=== PATIENT | male | born 1950 | race Caucasian/White ===

== ENCOUNTER 2016-07-20 05:42 | Inpatient (IN) | payer OTHER ==
--- NOTE | 2016-07-19 17:27 | GHP ---
[f rep st] PREOP HISTORY AND PHYSICAL DATE OF ADMISSION: 07/20/2016 SURGERY DATE: 07/20/2016. HISTORY: The patient is a 65-year-old male who presents with severe right knee osteoarthritis. He has had appropriate conservative measures, including medications, therapeutic exercise and injection s. He has severe arthritis that is tricompartment, bone to bone in the medial compartment. He has degenerative lipping subchondral sclerosis. This impacts his gait and causes him to limp. It limit s his motion and affects activities of daily living. He has had a successful total knee replacement on the left. He has recovered well from that. He wi shes to proceed with a right knee replacement. PAST MEDICAL HISTORY: Remarkable for elevated cholesterol. PAST SURGICAL HISTORY: His surgeries include a left total knee arthroplasty, previous left knee art hroscopy, herniorrhaphy and a left carpal tunnel release apparently for infection in the hand. MEDICATIONS: Metoprolol 50 mg p.o. daily, amlodipine 5 mg p.o. daily, simvastatin 40 mg p.o. daily, hydrochlorothiazide 25 mg p.o. daily. ALLERGIES: No known drug allergies. SOCIAL HISTORY: He is a nonsmoker. REVIEW OF SYSTEMS: Is positive from a cardiopulmonary standpoint for hypertension as well as elevat ed cholesterol. PHYSICAL EXAMINATION: GENERAL: The patient is a well-developed, well-nourished male, in no apparen t distress. HEAD AND NECK: Normocephalic, atraumatic. CHEST: Clear. CARDIOVASCULAR: Regular ra te and rhythm. ABDOMEN: Soft. NEUROLOGIC: He is alert and oriented x3. EXTREMITIES: Examinatio n of the right knee shows varus malalignment. Tenderness throughout the knee, especially medial gemini nt line. He has an effusion. He has a slight flexion contracture, flexing to about 120 degrees. S KIN: Is intact. NEUROVASCULAR: Is intact. IMAGING: X-rays are described in the history. They show tricompartment osteoarthritis. IMPRESSION: Right knee tricompartment osteoarthritis. PLAN: Is right total knee arthroplasty. Benefits and risks of surgery have been reviewed with the patient and he understands that the risks include infection, damage to blood vessels or nerves, failure or loosening of the components and nee d for revision, bleeding and need for transfusion, blood clot in the leg or lungs. He is well aware of the rigorous nature of the rehabilitation and hospital stay. He has signed his consent form and wishes to proceed. /[id number]/MODL
[2016-07-20] MEDS ORDERED: LR 1,000 ML IV ONE (06:38)
[2016-07-20] MEDS ORDERED: LIDOCAINE 1% 5 ML SDV ID PRN (06:38)
[2016-07-20] MEDS ORDERED: ceFAZolin 1 GM/5 ML SYR ONE (06:40)
[2016-07-20] MEDS ORDERED: LIDOCAINE 1% 5 ML SDV ONE (06:47)
[2016-07-20] MEDS ORDERED: MIDAZOLAM 2 MG/2 ML VIAL ONE (07:06)
[2016-07-20] MEDS ORDERED: PROPOFOL/EMULSION 500 MG/50 ML BOTTLE IV ONE (07:11)
[2016-07-20] MEDS ORDERED: fentaNYL 100 MCG/2 ML INJ ONE (07:13)
[2016-07-20] MEDS ORDERED: PROPOFOL 200 MG/20 ML VIAL ONE ×2 (07:24→08:37)
[2016-07-20] MEDS ORDERED: CHLORHEXIDINE GLUC HIBICLENS 118 ML BTL TP ONE (08:00)
[2016-07-20] MEDS ORDERED: POVIDONE-IODINE 20 ML in SODIUM CL IRRIG SOLUTION 500 ML IRR ONE (08:00)
[2016-07-20] MEDS ORDERED: FAMOTIDINE 20 MG TAB PO ONE (08:00)
[2016-07-20] MEDS ORDERED: ROPI/epiNEPH/KETOROLAC JOINT COCKTAIL IU ONE (08:00)
[2016-07-20] MEDS ORDERED: ACETAMINOPHEN 325 MG TAB PO ONE (08:00)
[2016-07-20] MEDS ORDERED: DEXAMETHASONE 4 MG/ML VIAL IVP ONE (08:00)
[2016-07-20] MEDS ORDERED: CEFAZOLIN 2 GM/DEXTR 100 ML IV ONE (08:00)
[2016-07-20] MEDS ORDERED: TRANEXAMIC ACID 800 MG in NS 100 ML IV ONE (08:00)
[2016-07-20] MEDS ORDERED: epHEDrine SULFATE 10 MG/ML SYR ONE (08:01)
[2016-07-20] MEDS ORDERED: DEXAMETHASONE 4 MG/ML VIAL ONE (09:11)
[2016-07-20] MEDS ORDERED: ONDANSETRON 4 MG/2 ML VIAL ONE (09:11)
[2016-07-20] MEDS ORDERED: ROPIVACAINE HCL 150 MG/30 ML INJ ONE (09:11)
[2016-07-20] MEDS ORDERED: MAGNESIUM HYDROXIDE 30 ML UDCUP PO PRN (09:41)
[2016-07-20] MEDS ORDERED: PROMETHAZINE HCL 25 MG/ML INJ IVP PRN (09:41)
[2016-07-20] MEDS ORDERED: CYCLOBENZAPRINE 10 MG TAB PO PRN (09:41)
[2016-07-20] MEDS ORDERED: oxyCODONE IR 5 MG TAB PO PRN (09:41)
[2016-07-20] MEDS ORDERED: diphenhydrAMINE 25 MG CAP PO PRN (09:41)
[2016-07-20] MEDS ORDERED: LACTULOSE 20 GM/30 ML UDCUP PO PRN (09:41)
[2016-07-20] MEDS ORDERED: PROMETHAZINE HCL 25 MG SUPPR PR PRN (09:41)
[2016-07-20] MEDS ORDERED: POLYETHYLENE GLYCOL 3350 17 GM PKT PO PRN (09:41)
[2016-07-20] MEDS ORDERED: KETOROLAC 30 MG/1 ML SDV IVP PRN (09:41)
[2016-07-20] MEDS ORDERED: DIPHENOXYLATE/ATROPINE LOMOTIL 1 TAB PO PRN (09:41)
[2016-07-20] MEDS ORDERED: PHARMACY PAIN CONSULT 1 EA MISC PRN (09:41)
[2016-07-20] MEDS ORDERED: TEMAZEPAM 15 MG CAP PO PRN (09:41)
[2016-07-20] MEDS ORDERED: METOCLOPRAMIDE 10 MG/2 ML VIAL IVP PRN (09:41)
[2016-07-20] MEDS ORDERED: ONDANSETRON 4 MG/2 ML VIAL IVP PRN (09:41)
[2016-07-20] MEDS ORDERED: BISACODYL 10 MG SUPP PR PRN (09:41)
[2016-07-20] MEDS ORDERED: ONDANSETRON DISINTEGRATING 4 MG TAB PO PRN (09:41)
[2016-07-20] MEDS ORDERED: KETOROLAC 30 MG/1 ML SDV ONE (09:57)
[2016-07-20] MEDS ORDERED: LR 1,000 ML IV SCH (10:00)
--- NOTE | 2016-07-20 11:35 | GOP ---
[f rep st] OPERATIVE REPORT DATE OF OPERATION: 07/20/2016 SURGEON: Gage Chairez MD MANAGER UTILIZATION: TEDDY TerrellA, LSA ANESTHESIOLOGIST: Chencho Stark IV, DO PREOPERATIVE DIAGNOSIS: Right knee osteoarthritis. POSTOPERATIVE DIAGNOSIS: Right knee osteoarthritis. PROCEDURE PERFORMED: FINDINGS: DESCRIPTION OF PROCEDURE: The patient was taken the operating room and in the seated position Dr. Wm holder provided a spinal anesthetic. He was then placed under general anesthetic. He received 2 g of IV Ancef. Tourniquet was fit high on the right thigh and a blanket beneath the right hip placed to neutralize the rotation. The right leg was prepped and draped out with chlorhexidine in the usual fashion. He received tranexamic acid. The limb was elevated, exsanguinated, the tourniquet inflate d to 275 mmHg. I made a longitudinal incision in the midline, dissected through subcutaneous tissue s, used a medial parapatellar arthrotomy, and inverted the patella. I measured its thickness at 24 mm. I removed 9 mm of cartilage and bone, removed rimming osteophytes, incised the patella to 38. I drilled appropriate PEG holes. The trial and the holy cross patella reconstituted his patellar thickn ess. I then flexed the knee. Removed osteophytes from the edges of the femoral condyles. I drille d a ferryboat pilot hole and used an intramedullary sj for alignment of the femur, 5 degrees valgus cut +2, e xtra cut to accommodate his flexion contracture. I sized the femur to size 7 and I used cutting blo cks to complete the anterior-posterior and chamfer cuts and the notch cuts for this bi-cruciate stab ilized knee. The size 7 femoral component was a good fit. On the tibia exposed with posterior and lateral retractors, I used an extramedullary alignment jig, I dialed in posterior slope, rotation, a ffixed the cutting block, double-checked this with an alignment sj, removed enough bone to just ski m underneath the most worn medial plateau. I removed degenerative menisci. I sized the tibial surf jaxon at a size 6. This was pinned, the rotation dialed in precisely. I completed the tibial prep. I did do some soft tissue release medially to accommodate his varus knee. This provided better soft tissue balance medial to lateral. All the components were removed. I jet lavaged all the bone jennifer faces with antibiotics. Methylmethacrylate cement was applied to the tibia and the size 6 tibial co mponent was hammered into place. Methylmethacrylate was applied to the femur and the femoral compon ent was applied. I placed a trial liner to generate compression of the cement. The patellar compon ent was held over a cement mantle with a clamp. Once the cement had hardened, I did trial reduction s, a 10 mm insert was chosen as it supplied excellent ligamentous stability, but full range of motio n. Antibiotic irrigation was used; I used a Betadine rinse as well. I placed 1 drain. The tourniq uet was let down after 85 minutes. Arthrotomy was closed with interrupted [id number] sutures o f 0 [place], subcu tissue with 2-0 Monocryl, and the skin with milagros. The wound was dressed wit h Betadine-soaked Adaptic, 4 x 4, sterile Webril, and a long-leg STEFANO stocking. There were no compli cations. The estimated blood loss was minimal. One drain. Specimens included excised bone. All c ounts correct. The patient was taken in stable condition to recovery. My media center assistant was a medical necessity for this total knee replacement. PROCEDURES: Right total knee arthroplasty. OPERATIVE INDICATIONS: Jerry is a 65-year-old male who presents with history, exam, radiographs, and clinical course consistent with severe right knee tricompartment osteoarthritis. A total knee a rthroplasty is planned. SUMMARY OF COMPONENTS: 1. This is a [employer] Bi-Cruciate Stabilized knee. 2. All components cemented. 3. Femoral component is Oxinium. 4. Femur size 7, tibia size 6. 5. The liner Crosslinked Polyethylene is 10 mm and the patella is 38 diameter. /[id number]/MODL
[2016-07-20] MEDS: ACETAMINOPHEN 325 MG TAB PO SCH ×2 (12:02→17:40)
[2016-07-20] MEDS ORDERED: ceFAZolin 2 GM/DEXTROSE 100 ML IV SCH (14:00)
[2016-07-20] MEDS: ceFAZolin 2 GM in D5W 100 ML IV SCH ×2 (14:32→20:22)
[2016-07-20] MEDS: METOPROLOL TARTRATE 50 MG TAB PO SCH (20:21)
[2016-07-20] MEDS: SENNOSIDES/DOCUSATE SODIUM TAB PO SCH (20:21)
[2016-07-20] MEDS: FAMOTIDINE 20 MG TAB PO SCH (20:22)
[2016-07-20] MEDS: ASPIRIN 325 MG TAB PO SCH (20:28)
[2016-07-21] MEDS: ACETAMINOPHEN 325 MG TAB PO SCH ×3 (03:02→11:09)
[2016-07-21 04:34] VITALS: TEMP 98.4
[2016-07-21 04:56] LABS: HEMATOCRIT 36.2 % (40.0-51.0); HEMOGLOBIN 12.5 g/dL (13.7-17.5)
[2016-07-21 07:48] VITALS: RESP 16; O2SAT 95
--- NOTE | 2016-07-21 08:26 | SOAPPROG ---
SOAP Progress Note Assessment/Plan: Assessment: 07/21/16 POD#1 R TKA. pain controlled, Hct 36, xray fine Plan: 07/21/16 08:25 home today, oxy, asa Objective: Vital Signs Temp Pulse Resp BP Pulse Ox 36.9 C 72 16 132/85 H 95 07/21/16 04:34 07/21/16 07:47 07/21/16 07:47 07/21/16 07:47 07/21/16 07:47 Laboratory Results 07/21/16 04:20 07/20/16 07/21/16 07/22/16 05:59 05:59 05:59 Intake Total 2305 Output Total 2155 Balance 150 ICD10 Worksheet Patient Problems: Problems Problem Status Onset Arthritis of left knee Acute
[2016-07-21] MEDS ORDERED: amLODIPine BESYLATE 5 MG TAB PO SCH (09:00)
[2016-07-21] MEDS ORDERED: HYDROCHLOROTHIAZIDE 25 MG TAB PO SCH (09:00)
[2016-07-21] MEDS ORDERED: NON-FORMULARY NEW DRUG (Simvastatin [Zocor 40 Mg] 40 MG) PO SCH (09:00)
[2016-07-21] MEDS ORDERED: ATORVASTATIN CALCIUM 20 MG TAB PO SCH (09:00)
[2016-07-21] MEDS: SENNOSIDES/DOCUSATE SODIUM TAB PO SCH (09:13)
[2016-07-21] MEDS: METOPROLOL TARTRATE 50 MG TAB PO SCH (09:13)
[2016-07-21] MEDS: ASPIRIN 325 MG TAB PO SCH (09:13)
[2016-07-21] MEDS: FAMOTIDINE 20 MG TAB PO SCH (09:14)
[2016-07-21 09:15] VITALS: BP 127/76; PULSE 83
[2016-07-21] MEDS ORDERED: PNEUMOCOCCAL 0.5ML VACCINE VIAL IM ONE (10:50)
== END 2016-07-21 11:50 | disposition home or self-care (01) | DRG 470 ==
LOC: F3N 05:42
PROVIDERS: ADMIT Orthopaedic Surgery; ATTEND Orthopaedic Surgery
PROC: 0SRC0J9 Replacement of Right Knee Joint with Synthetic Substitute, Cemented, Open Approach (ICD-10-PCS; principal; 2016-07-20 07:15)
DX: M17.11 Unilateral primary osteoarthritis, right knee (principal); E78.00 Pure hypercholesterolemia, unspecified; I10 Essential (primary) hypertension; Z23 Encounter for immunization; Z96.652 Presence of left artificial knee joint
CPT/HCPCS: 97116-GP; 97161-GP; 97165-GO; C1713; G0009; J0171; J0690; J1100; J1885; J2250; J2405; J2704; J2795; J3010

== ENCOUNTER → 2017-11-03 | Outpatient (CLI) | payer OTHER | LOC: FIMAGING 14:45 | PROVIDERS: ATTEND Orthopaedic Surgery Foot and Ankle Surgery | DX: M19.072 Primary osteoarthritis, left ankle and foot (principal) ==

== ENCOUNTER 2017-11-16 10:07 | Inpatient (IN) | payer OTHER ==
--- NOTE | 2017-11-16 07:07 | GHP ---
[f rep st] PREOP HISTORY AND PHYSICAL DATE OF ADMISSION: 11/16/2017 DATE OF SURGERY: 11/16/2017. CHIEF COMPLAINT: Left ankle pain. HISTORY OF PRESENT ILLNESS: Patient is a 67-year-old with a history of progressive left ankle pain a nd swelling. His symptoms have been worsening and limiting his activity status. PAST MEDICAL HISTORY: Positive for hypertension and hyper cholesterol. MEDICINES: Amlodipine, hydrochlorothiazide, metoprolol and simvastatin. ALLERGIES: He lists no drug allergies. SOCIAL HISTORY: Negative for current tobacco use. PAST SURGICAL HISTORY: Positive for total knee arthroplasty. PHYSICAL EXAMINATION: GENERAL: He is alert and oriented x3 in no acute distress. HEENT: Head is n ormocephalic. Pupils equal, round, reactive to light. Extraocular eye movements intact. NECK: Sup ple. No JVD or lymphadenopathy. CHEST: Clear to auscultation. HEART: Regular rate and rhythm. N o murmurs or gallops. ABDOMEN: Soft, nontender, nondistended. No organomegaly. GENITALIA/RECTAL/B REASTS: Exams deferred. EXTREMITIES: Reveal marked swelling and valgus malalignment to his left an kle. His distal neurovascular exam is intact. ASSESSMENT: Left ankle arthrosis. PLAN: The patient is scheduled for a left total ankle arthroplasty. /[id number]/MODL
[2017-11-16] MEDS ORDERED: LR 1,000 ML IV ONE (10:41)
[2017-11-16] MEDS ORDERED: BUPIVACAINE 0.25% 30 ML SDV ONE (10:50)
[2017-11-16] MEDS ORDERED: ceFAZolin 2 GM/DEXTROSE 100 ML IV ONE (10:56)
[2017-11-16] MEDS ORDERED: BUPIVACAINE/EPI 0.5% 30 ML SDV ONE (11:10)
[2017-11-16] MEDS ORDERED: fentaNYL 100 MCG/2 ML INJ ONE (11:15)
[2017-11-16] MEDS ORDERED: MIDAZOLAM 2 MG/2 ML VIAL ONE (11:15)
--- NOTE | 2017-11-16 11:58 | PDANEPAE ---
ANE Past Medical History - Cardiovascular History Hx Hypertension: Yes Hx Arrhythmias: No Hx Chest Pain: No Hx Coronary Artery / Peripheral Vascular Disease: No Hx CHF / Valvular Disease: No Hx Palpitations: No Cardiovascular History Comment: pcp monitors bp meds - Pulmonary History Hx COPD: No Hx Asthma/Reactive Airway Disease: No Hx Recent Upper Respiratory Infection: No Hx Oxygen in Use at Home: No Hx Sleep Apnea: No Sleep Apnea Screening Result - Last Documented: Positive Pulmonary History Comment: PNEUMONIA X2 IN PAST. 08/2014-R pneumothorax with chest tube placement;. 3 Fx R ribs s/p fall. alisia triggers - Neurologic History Hx Cerebrovascular Accident: No Hx Seizures: No Hx Dementia: No - Endocrine History Hx Diabetes: No - Renal History Hx Renal Disorders: No Renal History Comment: frequency from hctz - Liver History Hx Hepatic Disorders: No - Neurological & Psychiatric Hx Hx Neurological and Psychiatric Disorders: No - Cancer History Hx Cancer: No - Congenital Disorder History Hx Congenital Disorders: No - GI History Hx Gastrointestinal Disorders: No - Other Health History Other Health History: Diffuse chronic arthritis. Torn bonnie rotator cuffs - Chronic Pain History Chronic Pain: Yes (right knee) - Surgical History Prior Surgeries: R TKA. left tka with [facility] 11/12/14. left carpal tunnel surgery with [place] 08/03/2012. 2011-I&D for staph inf. from carpal tunnel. 1999-umbilical and bilateral ing. hernia repair ANE Review of Systems Review of Systems: - Exercise capacity METS (RN): 4 METS ANE Patient History - Allergies Allergies/Adverse Reactions: No Known Allergies Allergy (Verified 06/13/16 14:34) - Home Medications Home Medications: Metoprolol Tartrate [Lopressor 50 mg (*)] 50 mg PO BID 07/29/12 [Last Taken ] Simvastatin [Zocor 40 mg] 40 mg PO DAILY18 07/29/12 [Last Taken 11/15/17] Ibuprofen [Motrin (*)] 200 mg PO Q4-6PRN PRN 03/02/16 [Last Taken 11/09/17] Hydrochlorothiazide [HCTZ (*)] 25 mg PO DAILY 06/13/16 [Last Taken 11/15/17] amLODIPine BESYLATE [Norvasc 5 mg (*)] 5 mg PO DAILY 06/13/16 [Last Taken ] oxyCODONE CR [Oxycontin] 20 mg PO BID PRN 11/11/17 [Last Taken 09/17/17] oxyCODONE IR [Oxycodone Ir (*)] 5 - 10 mg PO Q6HRS PRN 11/11/17 [Last Taken Unknown] - NPO status NPO Status: no food or drink >8 hours NPO Since - Liquids (Date): 11/16/17 NPO Since - Liquids (Time): 06:00 NPO Since - Solids (Date): 11/15/17 NPO Since - Solids (Time): 18:00 - Anes Hx Anes Hx: no prior problems - Smoking Hx Smoking Status: Former smoker - Family Anes Hx Family Hx Anesthesia Complications: none ANE Labs/Vital Signs - Vital Signs Blood Pressure: 139/85 Heart Rate: 58 Respiratory Rate: 16 O2 Sat (%): 96 Height: 182.88 cm Weight: 79.379 kg ANE Physical Exam - Airway Mallampati Score: Class 2 Mouth exam: normal dental/mouth exam - Pulmonary Pulmonary: no respiratory distress, no rales or rhonchi, clear to auscultation - Cardiovascular Cardiovascular: regular rate and rhythym, no murmur, rub, or gallop - ASA Status ASA Status: II ANE Anesthesia Plan Anesthesia Plan: GA w LMA (Popliteal continuous nerve block catheter in place ( Dr. Rachel).)
[2017-11-16] MEDS ORDERED: BUPIVACAINE 0.25% 270 ML in PUMP SET 1 EA NB SCH (12:00)
[2017-11-16] MEDS ORDERED: ONDANSETRON 4 MG/2 ML VIAL ONE (12:09)
[2017-11-16] MEDS ORDERED: PROPOFOL 200 MG/20 ML VIAL ONE (12:09)
[2017-11-16] MEDS ORDERED: LIDOCAINE 2% JELLY 5 ML TUBE ONE (12:09)
[2017-11-16] MEDS ORDERED: DEXAMETHASONE 4 MG/ML VIAL ONE ×2 (12:09)
[2017-11-16] MEDS ORDERED: LIDOCAINE 2% 5 ML SDV ONE (12:30)
[2017-11-16] MEDS ORDERED: fentaNYL 250 MCG/5 ML INJ ONE (12:49)
[2017-11-16] MEDS ORDERED: GLYCOPYRROLATE 0.2 MG/1 ML VIAL ONE (12:58)
[2017-11-16] MEDS ORDERED: PROMETHAZINE HCL 25 MG/ML INJ IVP PRN (14:41)
[2017-11-16] MEDS ORDERED: NALOXONE HCL 0.4 MG/ML INJ IVP PRN ×2 (14:41→15:19)
[2017-11-16] MEDS ORDERED: oxyCODONE IR 5 MG TAB PO PRN ×2 (14:41→16:55)
[2017-11-16] MEDS ORDERED: LR 500 ML IV PRN (14:41)
[2017-11-16] MEDS ORDERED: MEPERIDINE 25 MG/0.5 ML AMP IVP PRN (14:41)
[2017-11-16] MEDS ORDERED: fentaNYL 100 MCG/2 ML INJ IVP PRN (14:41)
[2017-11-16] MEDS ORDERED: ONDANSETRON 4 MG/2 ML VIAL IVP PRN (14:41)
[2017-11-16] MEDS ORDERED: ACETAMINOPHEN 500 MG TAB PO PRN (14:41)
[2017-11-16] MEDS ORDERED: BISACODYL 10 MG SUPP PR PRN (15:09)
[2017-11-16] MEDS ORDERED: POLYETHYLENE GLYCOL 3350 17 GM PKT PO PRN (15:09)
[2017-11-16] MEDS ORDERED: MAGNESIUM HYDROXIDE 30 ML UDCUP PO PRN (15:09)
[2017-11-16] MEDS ORDERED: morphINE PCA 30 MG/30 ML PCA IV PRN (15:09)
[2017-11-16] MEDS ORDERED: LACTULOSE 20 GM/30 ML UDCUP PO PRN (15:09)
--- NOTE | 2017-11-16 15:09 | POSTOPPROG ---
Post Op Note Date of Operation: 11/16/17 Surgeon: Sander Garcia Raw Mill Operator: Gadiel Anesthesia: LMA Pre-op Diagnosis: L ankle arthrosis, gastroc contracture, midfoot instability Post-op Diagnosis: same Procedure: L TAA, gastroc recession, midfoot arthrodesis Inf/Abcess present in the surg proc area at time of surgery?: No EBL: 50-100
[2017-11-16] MEDS ORDERED: D5W 1/2 NS W/ 20 KCl/L 1,000 ML IV SCH (15:15)
--- NOTE | 2017-11-16 15:29 | POSTANESTH ---
Post Anesthetic Evaluation Cardiovascular Status: Normal, Stable, Similar to Pre-Op Cond Respiratory Status: Normal, Stable, Similar to Pre-op Cond. Level of Consciousness/Mental Status: Can Participate in Eval, Alert and Oriented Pain Control: Adequate, Prn Tx Ordered Nausea/Vomiting Control: Adequate, Prn Tx Ordered Complications Possibly Related to Anesthesia: None Noted (No pain, catheter still in place. Infusion bupiv 0.25% 4 ml/hr started at 1430.)
[2017-11-16] MEDS ORDERED: ONDANSETRON DISINTEGRATING 4 MG TAB PO PRN (16:55)
[2017-11-16] MEDS ORDERED: DIAZEPAM 5 MG TAB PO PRN (16:55)
--- NOTE | 2017-11-16 17:22 | PDMN ---
Medical Necessity Medical necessity[place] [facility] [place] only, total ankle arthroplasty w/implant
[2017-11-16] MEDS ORDERED: ATORVASTATIN CALCIUM 20 MG TAB PO SCH (18:00)
[2017-11-16] MEDS: ceFAZolin 2 GM/DEXTROSE 100 ML IV SCH (20:31)
[2017-11-16] MEDS: SENNOSIDES/DOCUSATE SODIUM TAB PO SCH (20:31)
[2017-11-16] MEDS: METOPROLOL TARTRATE 50 MG TAB PO SCH (20:31)
[2017-11-17] MEDS: ceFAZolin 2 GM/DEXTROSE 100 ML IV SCH (04:42)
--- NOTE | 2017-11-17 06:50 | SOAPPROG ---
SOAP Progress Note Assessment/Plan: Assessment: S/P L TAA Some pain, mostly medially Nirali po + U/O Splint intact, no D/C Toes with good cap refill Slightly diminished sensation diffusely Plan: OOB/PT Prob D/C later today 11/17/17 06:49 Objective: Vital Signs Temp Pulse Resp BP Pulse Ox 36.9 C 82 16 125/68 H 99 11/17/17 04:00 11/17/17 04:00 11/17/17 04:00 11/17/17 04:00 11/17/17 04:00 11/16/17 11/17/17 11/18/17 05:59 05:59 05:59 Intake Total 3170 220 Output Total 2100 Balance 1070 220 ICD10 Worksheet Patient Problems: Problems Problem Status Onset Arthritis of left knee Acute
[2017-11-17] MEDS: SENNOSIDES/DOCUSATE SODIUM TAB PO SCH (07:52)
[2017-11-17] MEDS: METOPROLOL TARTRATE 50 MG TAB PO SCH (07:52)
[2017-11-17 07:57] VITALS: BP 130/75
[2017-11-17] MEDS ORDERED: ENOXAPARIN 40 MG/0.4 ML SYR SC SCH (09:00)
[2017-11-17] MEDS ORDERED: amLODIPine BESYLATE 5 MG TAB PO SCH (09:00)
[2017-11-17] MEDS ORDERED: HYDROCHLOROTHIAZIDE 25 MG TAB PO SCH (09:00)
--- NOTE | 2017-11-17 09:23 | ASDISCHSUM ---
Discharge Information Plan Status:Home with No Needs Medically Cleared to Leave:11/17/2017 Discharge Date:11/17/2017 CM D/C Disposition:Home, Routine, Self-Care ADT D/C Disposition:Home, Routine, Self-Care Projected Discharge Date:11/17/2017 Transportation at D/C: Discharge Delay Reason: Follow-Up Date:11/17/2017 Discharge Slot: Final Diagnosis: Placement Information Patient Contact Information Contact Name:PARRISH Relationship: Address:[address] City:[facility] Phone: [facility]/Zip Code:[place] [address] Email: Financial Information Financial Class:Medicare Advantage Plans Primary Plan Desc:[facility] [employer] PLANS Primary Plan Number:[id number] Secondary Plan Desc: Secondary Plan Number: Assessment Information LACE LACE Length of stay for Answers: Less than 1 day current admission Acuity / Level of Answers: Yes Care: Did the patient have an inpatient admission? Comorbidities - select Answers: Other Notes: HTN, hyper cholesterol all that apply # of Emergency department Answers: 1-2 visits in the last 6 months Score: 5 Date Signed: 11/17/2017 09:22 AM Electronically Signed By:Alena Ritter RN Intervention Information
[2017-11-17] MEDS ORDERED: PNEUMOC 13-VAL CONJ-DIP CRM/PF 0.5 ML SYR IM ONE (10:06)
--- NOTE | 2017-11-19 09:10 | GOP ---
[f rep st] OPERATIVE REPORT DATE OF OPERATION: 11/16/2017 SURGEON: Sander Garcia MD SUPPLIER DEVELOPMENT MANAGER: Jyoti Ramesh P.A.-C. who was integral to the completion of the surgery. ANESTHESIA: General plus indwelling popliteal block performed by the anesthesiologist at my request for postoperative pain management. PREOPERATIVE DIAGNOSIS: 1. Left in advanced ankle arthrosis. 2. Left gastrocnemius contracture. 3. Left hypermobile 1st ray (forefoot driven heel valgus). POSTOPERATIVE DIAGNOSIS: 1. Left in advanced ankle arthrosis. 2. Left gastrocnemius contracture. 3. Left hypermobile 1st ray (forefoot driven heel valgus). PROCEDURE PERFORMED: 1. Left implant total ankle arthroplasty. 2. Left 1st tarsometatarsal and intercuneiform arthrodesis. 3. Left gastrocnemius recession. FINDINGS: ESTIMATED BLOOD LOSS: Minimal. INDICATIONS: The patient is 67-year-old with a history of progressive left ankle pain and swelling. Clinically and radiographically he is noted to have end-stage ankle arthrosis with mild valgus tilt of his ankle within his mortise. Based on his persistence of symptoms, refractory to nonoperative tr eatment he is electing to pursue operative treatment. From an operative standpoint, treatment option s, including total ankle arthroplasty and ankle arthrodesis were discussed. The patient acknowledged he understood the potential risks of the operation, including but not limited to, bleeding, infectio n, neurovascular damage, limb loss or limb limiting function, implant failure requiring removal, revi nena arthrodesis or amputation and anesthetic risks. He additionally acknowledged that despite treat ment he did have arthritic changes in other parts of his foot including his subtalar joint which may remain symptomatic and may require additional treatment. He acknowledged he understood the potential risks, planned procedure, and postoperative plan well, and had all questions answered prior to surge ry. He gave his consent for the operative procedure. DESCRIPTION OF PROCEDURE: The patient brought to the operating after IV antibiotics were administere d. He was placed in a supine position where general anesthetic was administered. Prior to being bro ught back to the operating room, an indwelling popliteal block was performed by the anesthesiologist at my request for postoperative pain management. A tourniquet was placed on his left thigh after ind uction of general anesthetic, a bump placed under the left hip and shoulder and left lower extremity was prepped and draped in standard sterile fashion. After marking the incision and [facility] wrap [facility] tourniquet was inflated to 250. Attention was initially directed toward the gastroc recession . A longitudinal incision was made along the medial aspect of the lower leg at the level of the mid substance of gastrocnemius. Skin and subcutaneous tissue were sharply incised. Sharp dissection was carried through the superficial posterior compartment fascia in line with the skin incision. The in terval between the gastrocnemius and soleus was bluntly dissected. Utilizing a speculum for retracti on the anterior tendon and the gastrocnemius was transversely incised. Subcutaneous tissue was close d with 3-0 Vicryl suture in interrupted fashion. Skin closed with 4-0 nylon interrupted sutures. An anterior approach to the ankle was then utilized for exposure. A longitudinal incision was made a long the anterior aspect of the ankle. Skin and subcutaneous tissue were sharply incised. The exten sor retinaculum was incised in line with the skin incision. The interval between the tibialis anteri or and extensor hallucis longus was utilized for exposure taking care to avoid damage to the neurovas cular bundle. The capsule was longitudinally incised. Exuberant synovitic changes were noted. The hypertrophic synovitic tissue was excised. Examination of the joint revealed advanced arthritic morales ges with complete loss of the articular cartilage. The cutting jig for the Integra Maria Del Carmen XT total an kle was applied. The cutting jig was manipulated and position confirmed fluoroscopically until optim al positioning had transpired referencing the tibial cut off the height necessary to accomplish favor able talar cut maintaining adequate bone stock and correcting for the valgus malalignment which had o ccurred in the talus. The cutting jig was pinned into place. After pinning the medial and lateral g utters with Shantz pins, a saw was utilized to create the transverse tibial cut with a reciprocating saw utilized to create the medial and lateral cuts. The cut bone surfaces were removed with osteotom e and rongeur. Attention was then directed toward the talar cut. The taler position was corrected manually creating a neutral position within the plafond and the cutting jig was pinned into place. The talar dome cut was then accomplished with a saw and bone removed. After the cuts were made trial implants with a s ize 2 talar and tibial components were performed with a 13 mm polyethylene insert finding favorable f it and stability. With the talar trial in place the central barrel was drilled as well as the boots and shoes supervisor ior stability drill holes. Similarly with the tibial trial pinned into place the anterior keel was d rilled and punched to enable proper bone preparation. The definitive implants were impacted into elvin ce and found to have favorable stability. There was some slight laxity in the lateral capsule. Penl ac suture anchor was then placed into the lateral aspect of the distal tibia and the capsule was imbr icated creating a stable environment. Attention was then directed towards the midfoot arthrodesis. The anterior ankle incision was extende d slightly distally to allow for exposure to the medial midfoot. Skin and subcutaneous tissue were s harply incised. Dissection was carried adjacent to the extensor hallucis longus tendon. The 1st tar sometatarsal and inner cuneiform joints were exposed. Utilizing the chisel and rongeur all articular surface was denuded. In preparation for arthrodesis, subchondral bone was drilled multiple times wi th a 2.0 mm drill bit and further roughened with a chisel. After creating a trough on the dorsal asp ect of the 1st metatarsal and medial cuneiform with a 4 mm bur, 4.0 mm cortical screws were placed in lag fashion from the dorsal aspect of the 1st metatarsal, plantar aspect of the medial cuneiform, do rsal aspect of the medial cuneiform into the plantar aspect of the 1st metatarsal and medial aspect o f the 1st metatarsal into the middle cuneiform. The 1st ray was held in a plantar flexed reduced pos ition while screw placement was performed. Fluoroscopic views confirmed favorable arthrodesis and bangura rdware positions. Attention was directed toward closure. The extensor retinaculum was closed with 2-0 Vicryl suture in interrupted fashion. Subcutaneous tissue closed with 3-0 Vicryl suture in interrupted fashion and t he skin closed with 3-0 nylon interrupted vertical mattress sutures. The wounds were dressed with st erile Adaptic, 4 x 4, Webril, and the leg was placed in a below-knee splint. The tourniquet had been deflated prior to definitive closure with no untoward bleeding seen. The patient was taken to the r ecovery room, extubated, in stable condition postoperatively. All sponge, needle, and instrument cou nts were reported as being correct. DRAINS: None. COMPLICATIONS: None. PLAN: The patient will be admitted for overnight observation. He will remain nonweightbearing on hi s operative extremity. /[id number]/MODL
== END 2017-11-17 11:17 | disposition home or self-care (01) | DRG 469 ==
LOC: F3N 10:07
PROVIDERS: ADMIT Orthopaedic Surgery Foot and Ankle Surgery; ATTEND Orthopaedic Surgery Foot and Ankle Surgery
PROC: 0KST0ZZ Reposition Left Lower Leg Muscle, Open Approach (ICD-10-PCS; principal; 2017-11-16 11:45)
PROC: 0SRG0JZ Replacement of Left Ankle Joint with Synthetic Substitute, Open Approach (ICD-10-PCS; principal; 2017-11-16 11:45)
PROC: 0SGL04Z Fusion of Left Tarsometatarsal Joint with Internal Fixation Device, Open Approach (ICD-10-PCS; principal; 2017-11-16 11:45)
DX: M19.072 Primary osteoarthritis, left ankle and foot (principal); M62.462 Contracture of muscle, left lower leg; I10 Essential (primary) hypertension; E78.00 Pure hypercholesterolemia, unspecified; Z96.652 Presence of left artificial knee joint
CPT/HCPCS: 97116-GP; 97161-GP; C1713; G8978-GP-CI; G8979-GP-CI; G8980-GP-CI; J0690; J1100; J1650; J2250; J2405; J2704; J3010

== ENCOUNTER 2018-08-02 02:24 | Inpatient (IN) | payer OTHER ==
[2018-08-02 02:38] LABS: PLATELET COUNT 562 10^3/uL (150-400)
[2018-08-02 02:48] LABS: INR 0.93 (0.83-1.16); PROTIME(PATIENT) 12.1 SEC (12.0-15.0)
--- NOTE | 2018-08-02 03:05 | EDPHY ---
H & P Time Seen by Provider: 08/02/18 02:31 HPI/ROS: Chief Complaint: Fall, scalp laceration, wrist injury HPI: 67-year-old male had a mechanical fall down 14 steps onto a concrete surface. Patient had a positive loss of consciousness. His heard him fall and found him unresponsive. Patient does not have any recollection of the last 24 hr. Does not remember any of the events. Per EMS the patient has a large laceration to his left scalp. Patient is also complaining of left wrist pain. Patient arrived as a limited + trauma team activation. ROS: 10 systems were reviewed and were negative except those elements noted in the HPI. Social History: No smoking Family History: non-contributory Physical Exam: Gen: Awake, Alert, Airway Intact HEENT: Head: Patient has a very large degloving skin avulsion of his left scalp without tissue loss, approximately 30 cm, no active bleeding Eyes: PERRLA, EOMI Nose: No epistaxis Mouth: Normal dentition, Airway patent Face: No deformity Neck: non-tender, cervical collar in place Chest: non-tender, lungs CTA Heart: normal heart tones Abd: soft, non-tender, atraumatic Pelvis: non-tender, stable to AP and Lateral compression Back: atraumatic, no midline tenderness Ext: Tenderness over the left hand and distal forearm, sensations intact in the radial, median, and ulnar nerve distribution. Skin: no rash Neuro: CN II-XII intact, Strength 5/5 in all extremities, sensation intact in all extremities - Personal History Tetanus Vaccine Date: 2011 - Medical/Surgical History Hx Asthma: No Hx Chronic Respiratory Disease: No Hx Diabetes: No Hx Cardiac Disease: Yes Hx Renal Disease: No Hx Cirrhosis: No Hx Alcoholism: No Hx HIV/AIDS: No Hx Splenectomy or Spleen Trauma: No Other PMH: chronic knee pain, HTN, hyperlipidemia, OA, HERNIA REPAIR INQUINAL & UMBILICAL. psh: LEFT KNEE 2014; RIGHT KNEE 2015 - Social History Smoking Status: Former smoker Constitutional: Initial Vital Signs Temperature (C) 36.6 C 08/02/18 04:22 Heart Rate 65 08/02/18 04:22 Respiratory Rate 14 08/02/18 04:22 Blood Pressure 112/60 08/02/18 04:22 O2 Sat (%) 100 08/02/18 04:22 Allergies/Adverse Reactions: No Known Allergies Allergy (Verified 08/02/18 04:31) Home Medications: Medication Instructions Recorded Metoprolol Tartrate [Lopressor 50 50 mg PO BID 07/29/12 mg (*)] Ibuprofen [Motrin (*)] 200 mg PO Q4-6PRN PRN 03/02/16 Hydrochlorothiazide [HCTZ (*)] 25 mg PO DAILY 06/13/16 amLODIPine BESYLATE [Norvasc 5 mg 5 mg PO DAILY 06/13/16 (*)] Multivitamins [Multivitamin (*)] 1 each PO DAILY 08/02/18 Rosuvastatin Calcium [Crestor 10mg 10 mg PO DAILY18 08/02/18 (RX)] Medical Decision Making - Diagnostics Imaging Results: CT scan of the head and cervical spine show the followin. Acute chip fracture of the anterior-inferior vertebral body of C6 on the right 2. Acute nondisplaced fracture through the right pedicle and lamina of C7. 3. Acute nondisplaced fractures of the inferior articulating facet of C7 and superior articulating facet of T1 on the right 4. Acute fractures of the base of the spinous process and right lamina of C6. 5. Remote fracture of the spinous process of C6 and 7. Widening of the interspinous space at this level may be acute or remote. 6. Large scalp laceration on the left at the apex 7. Fluid within the maxillary and sphenoid sinus, no facial bone fracture 8. Mild prefer deep will soft tissue swelling at the level of C7. 9. No acute intraparenchymal hemorrhage, no mass lesion seen, no CT evidence for acute tentorial infarct. No midline shift or extra-axial collections. CT scan interpreted by Dr. Jimenez, direct Radiology. Imaging: Discussed imaging studies w/ machine scallop cutter Radiologist ED Course/Re-evaluation: 67-year-old male status post fall down a flight of stairs a large scalp hematoma. Arrived as a trauma team activation plan. Will obtain CT scan of the head neck, image the left forearm and reassess. CT results noted. Discussed with Dr. Pang, trauma surgery. He is prepared to scalp laceration. I have discussed with Neurosurgery. They are requesting MRI. They will consult in the morning. Patient is neurologically intact. Left hand consistent with a fracture. Patient has been splinted. In surgery notified by Dr. Pang. Critical Care Time: I spent a total of 40 minutes of critical care time in obtaining history, performing a physical exam, bedside monitoring of interventions, collecting and interpreting tests and discussion with consultants but not including time spent performing procedures. - Data Points Laboratory Results: Laboratory Results 08/02/18 02:15 08/02/18 02:15 Medications Given: Acetaminophen (Tylenol) 325 - 650 mg PO Q4HRS PRN PRN Reason: Pain, Mild Able to Take PO Stop: 01/29/19 04:13 Last Admin: 08/02/18 10:50 Dose: 650 mg Potassium Chloride/Sodium Chloride (Ns W/ 20 Kcl/L) 1,000 mls @ 100 mls/hr IV CONT SUSHMA Stop: 01/29/19 10:29 Last Admin: 08/02/18 23:05 Dose: 1,000 mls Morphine Sulfate (Morphine) 1 - 2 mg IVP Q1HR PRN PRN Reason: Pain, Severe Unable to Take PO Stop: 08/12/18 04:13 Last Admin: 08/02/18 06:14 Dose: 2 mg Ondansetron HCl (Zofran) 4 mg IVP Q4HRS PRN PRN Reason: Nausea/Vomiting, Can't Take PO Stop: 01/29/19 06:10 Last Admin: 08/02/18 06:13 Dose: 4 mg Oxycodone HCl (Oxycodone Ir) 5 - 10 mg PO Q4HRS PRN PRN Reason: Pain, Severe Able to Take PO Stop: 08/12/18 04:24 Last Admin: 08/03/18 00:41 Dose: 5 mg Rosuvastatin Calcium (Crestor) 10 mg PO DAILY18 SUSHMA Stop: 01/29/19 17:59 Last Admin: 08/02/18 18:41 Dose: 10 mg Discontinued Medications Famotidine/Sodium Chloride (Pepcid 20 Mg (Premix)) 50 mls @ 200 mls/hr IV Q12HRS SUSHMA Stop: 01/29/19 08:59 Last Admin: 08/02/18 09:16 Dose: 50 mls Point of Care Test Results: Chemistry 08/02/18 02:34 POC Sodium 129 mEq/L L mEq/L (135-145) POC Potassium 3.1 mEq/L L mEq/L (3.3-5.0) POC Chloride 91 mEq/L L mEq/L (97-110) POC Total CO2 25 mEq/L mEq/L (22-31) POC BUN 6 mg/dL L mg/dL (7-23) POC Creatinine 0.9 mg/dL mg/dL (0.7-1.3) POC Glucose 99 mg/dL mg/dL (70-100) ISTAT H&H 08/02/18 02:34 POC Hgb 12.9 gm/dL L gm/dL (13.7-17.5) POC Hct 38 % L % (40-51) Departure - Departure Disposition: [facility] Inpatient Acute Clinical Impression: Cervical spine fracture, Scalp laceration, Hand fracture Condition: Fair
[2018-08-02] MEDS ORDERED: NALOXONE HCL 0.4 MG/ML INJ IVP PRN (04:14)
[2018-08-02] MEDS ORDERED: LORazepam 2 MG/ML INJ IVP PRN (04:14)
--- NOTE | 2018-08-02 04:36 | PDCONSULT ---
Adult Live In Caregiver Note: Limited trauma activation Chief complaint: Fall down stairs at home. History of present illness: This is a 67-year-old gentleman presents to the hospital after an unwitnessed fall down stairs at his home. The house under construction and the patient fell landing with a 1 leg still on the staircase and a large pool of blood from a scalp wound at the bottom of the stairs. The patient is not on anticoagulation. His minimal complaints except for his left wrist left shoulder to palpation and scalp wound. Past medical history: Hypertension, hyperlipidemia, chronic pain Family history: Noncontributory No known drug allergies Medications at home: Amlodipine, metoprolol, hydrochlorothiazide, OxyContin, oxycodone, Statin Review of systems: Significant for recent trauma otherwise negative denies chest pain, history of syncope, hypoglycemia Social history: Admits to alcohol use, has significant other with him Alert oriented to person place and time Sclerae anicteric extraocular motions intact pupils 4 mm and reactive, no tympanic blood Large scalp laceration from left forehead to occiput with matted blood Dentition intact Abrasion by nares Regular rate and rhythm Clear to auscultation bilaterally Trachea midline no JVD Left shoulder abrasion Left wrist deformity tender to palpation Abdomen soft nontender nondistended Left lower extremity, right lower extremity, right upper extremity without deformity abrasion or signs of trauma. Distally neurovascularly intact 08/02/18 02:15 08/02/18 02:15 Blood alcohol level 139 CT scanned from direct Radiology with findings of acute fractures through the base of the spinous process of right lamina of C6 inferior articulating surface of C6 facet and remote to minus depressed fracture of C6, acute nondisplaced fracture through the pedicle and lamina of C7 as well as the articulating surface superiorly facet C7 on the right Plain film of the wrist personally reviewed on PACS with Dr. Angeles emergency medicine shows volar/posterior chip fracture displaced. Normal left forearm and shoulder films Impression/plan C6 and C7 acute fractures of the lamina and pedicles the wound as well as articulating surfaces between the 2 vertebral bodies. MRI pending. Neurosurgery Dr. Francis consult id Chip fracture left wrist. Splint applied. Dr. Reis orthopedic surgery to be called. Admit to Step-Down Unit NPO except for meds. Restart home meds when they have been reconciled by pharmacy Hold anticoagulation until is assessed by consulting services of Neurosurgery and Orthopedics. Neurologic checks q.2 hours.
[2018-08-02] MEDS ORDERED: ONDANSETRON 4 MG/2 ML VIAL IVP PRN (06:11)
[2018-08-02] MEDS ORDERED: ONDANSETRON 4 MG/2 ML VIAL ONE (06:12)
[2018-08-02] MEDS ORDERED: GADOBUTROL 10 ML VIAL IVP ONE (07:01)
[2018-08-02] MEDS ORDERED: FAMOTIDINE 20 MG/NACL 50 ML IV SCH (09:00)
[2018-08-02] MEDS ORDERED: PROTOCOL POTASSIUM 1 DOSE MISC PRN (10:15)
[2018-08-02] MEDS ORDERED: PROTOCOL MAGNESIUM 1 DOSE IV PRN (10:15)
[2018-08-02] MEDS: NS W/ 20 KCl/L 1,000 ML IV SCH ×2 (10:35→23:05)
--- NOTE | 2018-08-02 10:46 | GCON ---
[f rep st] CONSULTATION DATE OF CONSULTATION: 08/02/2018 CHIEF COMPLAINT: Fall down stairs at home. The patient is seen by neurosurgical service at 0836 on 08/02/2017. Attempt was made this morning at 0700, but patient was in MRI scanner, unable to examine. HISTORY OF PRESENT ILLNESS: The patient is a 67-year-old gentleman who presented to the hospital aft er an unwitnessed fall down some stairs at home. The house is under construction. The patient fell, landing with 1 leg still on the staircase and a large pool of blood from a scalp wound at the bottom of the stairs. This account was given from the admitting trauma surgeon, as well as reports from [facility] and EMS. The patient is not on any current anticoagulation. Patient denies any aspirin. Curr ently, he is awake and alert. He is able to tell me his name, location, date, and time. He has a GC S currently of 15. He has some complaints to the left wrist, left shoulder, but there was loss of co nsciousness and a CT scan of the head was obtained, as well as CT scan of the cervical spine which sh owed multiple cervical spine fractures. There is a laceration to his scalp which was repaired prior to our evaluation. The patient denies any right upper extremity or bilateral lower extremity numbnes s, tingling, weakness, or pain. He does have a splint in place on the right wrist. No chest pain. No shortness of breath. No abdominal complaints. He has no thoracic or lumbar spine complaints. He currently is flat on his back in a cervical collar. PAST MEDICAL HISTORY: Significant for hypertension, hyperlipidemia, and chronic pain. SURGICAL HISTORY: 1. Hernia repair, inguinal and umbilical. 2. Left knee surgery 2014. 3. Right knee surgery 2016. CURRENT MEDICATIONS: 1. Lopressor. 2. Simvastatin. 3. Motrin. 4. Hydrochlorothiazide. 5. Norvasc. 6. OxyContin. 7. Oxycodone given in 10/2017. SOCIAL HISTORY: The patient is . He is a former smoker. He admits to alcohol intake. ALLERGIES: No known drug allergies. FAMILY HISTORY: Reviewed and noncontributory. IMMUNIZATIONS: Reported up to date. TRAVEL: No recent travel. REVIEW OF SYSTEMS: A complete 10-point review of systems was negative, otherwise noted in HPI and be low. PHYSICAL EXAMINATION: GENERAL: This is awake, alert, oriented male in no acute distress. VITAL SIG NS: Most recent, blood pressure 107/58 with a MAP of 74, 69 heart rate, 16 respirations, 100% on 1 L , temperature 37.2. HEENT: Head is normocephalic. Large laceration noted to the left forehead occi put that was repaired. Pupils are equal, round, and reactive to light. EOMI intact. Ears are paten t. Nose is patent. NECK: Palpated in collar with no midline tenderness. Range of motion was not t ested with flexion, extension, lateral bending, or rotation due to nature of injury. RESPIRATORY: D eferred. CARDIAC: Deferred. ABDOMEN: Soft, nontender. No peritoneal signs. /RECTAL: Deferred . NEURO: Patient is awake, alert, oriented to name, place, location, date, time, and situation. Me johnny is intact to past events, not to recent fall. Speech: No aphasia, dysarthria, dysphonia. Cran ial nerves 2 through 12 grossly intact. Motor: Patient has 5/5 strength in all muscle groups of the bilateral upper and lower extremities to include deltoids, biceps, triceps, brachioradialis, wrist f lexion and extensors, senior strategy analyst intrinsic fingers, iliopsoas, quadriceps, hamstring, plantar flexion, dors iflexion, EHL testing with the exception of left wrist extension was not tested, as well as flexion o f the wrist due to splint in place. Distally, he is able to wiggle his fingers. His senior strategy analyst is intact on the left side. Biceps and triceps intact. Sensation intact to light touch throughout all dermato me distributions, upper and lower extremities. Negative straight leg raise. Negative TASNEEM test. R eflexes: Biceps, triceps, brachioradialis, knee jerk, and ankle jerk are 2+/4. Toes are downgoing bi laterally. Morrison's negative. Babinski negative. No clonus. DIAGNOSTICS: Laboratory tests obtained 08/02/2018 show a white count of 9.29 with an H and H 11.4 an d 35.1 with a platelet count of 562. Coags on 08/02/2018 show a PT of 12.1, INR 0.93, and a PTT of 2 6.6. Chemistry on 08/02/2018 shows sodium 129, potassium 3.1, chloride 91, CO2 of 25, BUN 6, creatin ine 0.9, and glucose of 99. Alcohol level on 08/02/2018 at 2:[address] scan of the cervical spine shows fractures through the base of spinous processes of the right lami na of C6, inferior articulating surface of C6 facet, acute nondisplaced fracture through the pedicle and lamina of C7, as well as articulating surface of the facet of C7 on the right. MRI pending of the cervical spine. Plain films of the wrist show a volar posterior chip fracture, displaced. Otherwise, normal left for earm and shoulder films. IMPRESSION: 1. C6 and C7 acute fractures of the lamina and pedicles, as well as articulating surfaces between th e 2 vertebrae. 2. Fall. 3. Alcohol abuse. 4. History of hypertension and other medical conditions. PLAN AND DISCUSSION: The patient is a 67-year-old male who came into the emergency department with a lcohol on board. He had a fall last night that was unwitnessed, was found down at the bottom of the steps by his . Emergency Medical Services were called and notified. He was brought in the emerg ency department and a CT scan of the head was obtained, as well as CT scan of the cervical spine. e cervical spine CT scan showed C6 and C7 acute fractures of the lamina and pedicles, as well as the facets. He was placed in a cervical collar. He had an MRI this morning and the final report is pend ing at this time. We will review this with neurosurgeon and develop a treatment plan accordingly. Alondra carmona recommended [id number] status at this time. He may need surgery for this and will stay in th e collar at this time in intensive care unit with [id number] status. Was instructed on no anti coagulations at this time, to hold this. All questions and concerns were answered. /[id number]/MODL
[2018-08-02] MEDS: ACETAMINOPHEN 325 MG TAB PO PRN (10:50)
--- NOTE | 2018-08-02 12:40 | PDCONSULT ---
Roughener Note: Brief Consult Note: L scaphoid waist fracture with possible radial styloid and dorsal ligament avulsion injury. I will return to extend current splint to a thumb spica. He should remain NWB of the LUE until f/u with me in 10-14d.
--- NOTE | 2018-08-02 12:57 | PDMN ---
Medical Necessity Medical necessity: Pt meets inpt criteria per MD order and Musculoskeletal disease GRG. 67 y/o s/p fall down stairs admitted w/mult injuries: cervical spine CT shows C6 and C7 acute fractures of the lamina, pedicles, and facets, placed in cervical collar, MRI results pending, evaluated by neurosurg, kept NPO as pt may need surgery, ICU monitoring, q 2 hr neuro checks. Other injuries include scalp lac and chip fx L wrist, ortho consult.
--- NOTE | 2018-08-02 14:16 | ASMTCMCOM ---
CM Note CM Note Notes: Pt is a 67 yo M, trauma pt, presented to [facility] after fall down 14 stairs. Pt admits to ETOH use. Pt lives in [place] with his . Pt care discussed in rounds, pt will likely have surgery today. Discharge needs TBD, pending PT/OT evals. CM to follow. Plan: TBD Date Signed: 08/02/2018 02:15 PM Electronically Signed By:ANNABEL Santos
[2018-08-02] MEDS: oxyCODONE IR 5 MG TAB PO PRN ×3 (14:49→20:17)
--- NOTE | 2018-08-02 14:55 | TRAUMAPNT ---
Trauma Tertiary Progress Note New Findings: None Assessment/Plan: 67 year old s/p fall Scalp laceration - milagros/sutures out in 10 days C6/7 fx with some c5/6 disc protrusion. No focal deficits. NSG planning on treating with an [place] collar, may need surgery later L navicular fracture - in splint. Dr. Reis evaluated. NWB LUE, keep elevated, f /u as outpatient Hypertension - normotensive now. Holding home meds. Hospitalists consult Hyperlipidemia - crestor Regular diet ETOH 138 at admission PT/OT/ST I attended multidisciplinary rounds S: Some pain by neck and head. Otherwise no new complaints. Pain controlled Objective: Vital Signs Temp Pulse Resp BP Pulse Ox 37.0 C 90 17 111/67 100 08/02/18 14:00 08/02/18 14:00 08/02/18 14:00 08/02/18 14:00 08/02/18 14:00 08/01/18 08/02/18 08/03/18 05:59 05:59 05:59 Intake Total 0 Output Total 550 400 Balance -550 -400 PT 12.1 SEC (12.0-15.0) 08/02/18 02:15 INR 0.93 (0.83-1.16) 08/02/18 02:15 Physical Exam - Physical Exam General Appearance: WD/WN, alert, no apparent distress, other (lying in bed) EENT: PERRL/EOMI, normal ENT inspection, No scleral icterus (R), No scleral icterus (L), No hearing deficit Neck: other (collar in place) Respiratory: lungs clear, normal breath sounds Cardiac/Chest: normal peripheral pulses, regular rate, rhythm Abdomen: normal bowel sounds, non-tender, soft Skin: normal color, warm/dry, other (abrasion L shoulder) Extremities: normal range of motion, non-tender, other (excellent strength. LUE with warm fingers and can move all fingers) Neuro/Psych: no motor/sensory deficits
--- NOTE | 2018-08-02 15:29 | GCON ---
[f rep st] CONSULTATION REFERRING PHYSICIAN: Ced Pang MD REASON FOR CONSULTATION: This is a consultation for left wrist injury. CHIEF COMPLAINT: Left wrist injury. HISTORY OF PRESENT ILLNESS: The patient is a 67-year-old male who presented to the hospital this mor carmen with a fall down the stairs at home. He is remodeling his house. He states he does not quite r emember what happened. When he came to, there was blood. He was bleeding from the scalp. He was ta [facility] to the [facility] ER seen and evaluated by the ER and trauma staff. His head and C T cervical spine were imaged. He was having pain in the left wrist, and x-rays of the wrist were obt ained. Some fractures were seen in the wrist, and I was consulted for further management. PAST MEDICAL HISTORY: Hypertension, hyperlipidemia, chronic pain. PAST SURGICAL HISTORY: 1. Hernia repair. 2. 2014 left knee surgery. 3. 2016 right knee surgery. MEDICATIONS: Please see MAR. SOCIAL HISTORY: He is . He is a former smoker. Occasional alcohol. ALLERGIES: No known drug allergies. FAMILY HISTORY: Noncontributory. IMAGING: X-ray of the left wrist and forearm were reviewed personally by me. The x-rays show a mini charlie displaced fracture of the scaphoid waist. There also appears to be a nondisplaced avulsion fra cture of the radial styloid tip as well as a possible volar ligament avulsion type fracture, likely t riquetral avulsion. PHYSICAL EXAMINATION: GENERAL: He is alert and oriented x3. He is no apparent distress in the ICU. EXTREMITIES: The left upper extremity is in a splint. He has intact AIN and ulnar motor. His sen sation is intact to light touch in motor in the median, ulnar, and radial distributions. His fingers are well perfused. He is not complaining of any pain with finger motion. He is able to make a full fist. ASSESSMENT AND PLAN: Left scaphoid waist fracture and possible radial styloid fracture along with a possible dorsal ligament avulsion. The above fracture pattern may be indicative of a more involved s oft tissue injury to the wrist, specifically a greater arc type injury. I had a brief discussion abo ut the options for the scaphoid fracture, namely casting versus surgical approach with a compression screw. We will discuss this further when he sees me in my clinic. For the time being, I will extend his splint to a thumb spica type splint. He is to follow up with me in in about 10-14 da ys. We will repeat x-rays in clinic and then we will have another discussion about treatment options for the left wrist. Thank you for this consult. /[id number]/MODL
--- NOTE | 2018-08-02 15:53 | GCON ---
[f rep st] CONSULTATION DATE OF CONSULTATION: 08/02/2018 Mr. Joseph is a 67-year-old gentleman who I am asked to see by the Trauma Service. He underwent a fa ll in the early hours of the morning. He has no recollection of it. He does have a history of sleepwalking in the setting of melatonin use . His house is currently under construction. He fell down some plywood steps and landed on a cement landing with a laceration requiring a fair amount of milagros and sutures. Cervical spine MRI subseq uently revealed posttraumatic sequelae fracture in C6 and C7. When I speak to the patient, he denies history of palpitations, chest pain, unexplained loss of consc iousness. He acknowledges drinking alcohol, but does not sound like he drinks to the point of intoxi cation every evening. That said, at 2 in the morning his blood alcohol level is 139. He has a history of hyponatremia from previous hospital visits. In 2016, he had sodiums in the 125-1 32 range. He does take hydrochlorothiazide. REVIEW OF SYSTEMS: Complete 10-point review of systems conducted, negative except as noted in the HP I. PAST MEDICAL HISTORY: Inguinal and umbilical hernia repair, knee surgery bilaterally, hypertension, hyperlipidemia. ALLERGIES: No known drug allergies. HOME MEDICATIONS: Amlodipine, hydrochlorothiazide, ibuprofen, metoprolol, multivitamin, and rosuvast atin. 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 Drinks beer daily, light beer with ice cubes. He is a nonsmoker. FAMILY HISTORY: Reviewed and unremarkable. PHYSICAL EXAMINATION: VITAL SIGNS: Temperature 37, blood pressure 111/67, pulse 90, breathing 17 ti mes a minute, 100% on 1 L. GENERAL: No acute distress. He has a well-sutured laceration on his for ehead. HEENT: Sclerae are anicteric. Oropharynx is clear. NECK: In a hard collar. HEART: S1, S 2, without murmurs. ABDOMEN: Soft, nontender, nondistended. LOWER EXTREMITIES: No edema. Calves are nontender. SKIN: Without rash. NEUROLOGIC: Nonfocal. LABORATORY DATA: Sodium 139, potassium 3.8, chloride 93, bicarb 24, BUN 8, creatinine 0.8, glucose 9 5. INR is normal. White count 9, hematocrit 35, platelets 562,000. Ethanol level is 139 as mention ed. IMAGING STUDIES: As in the HPI. He does have an acute nondisplaced navicular fracture and a wrist x -ray. ASSESSMENT/PLAN: A 67-year-old gentleman with presumed mechanical fall, a cervical spine fracture, n avicular fracture, head laceration. 1. Fall. This is presumed mechanical. I think it is reasonable to keep on telemetry while he is he re in the hospital. It sounds like he is wandering around, possibly intoxicated, at his house in the dark while it is under construction. This is certainly a set up for falls. It may have been sleepw alking. 2. Hyponatremia. This is likely low solute intake in the setting of hydrochlorothiazide. I would p ermanently discontinue the hydrochlorothiazide given the chronicity of it. I think this is probably somewhere near his baseline. 3. Cervical spine fracture. It sounds like per Neurosurgery he is going to be managed with a hard c ollar and followup. 4. Prophylaxis. Sequential compression devices for now. DISPOSITION: Currently ICU. Thank you for this consultation. Hospital Medicine will follow. /[id number]/MODL
--- NOTE | 2018-08-02 17:54 | POSTOPPROG ---
Post Op Note Date of Operation: 08/02/18 Surgeon: Ced Pang Screw Machine Set Up Operator Tool: none Anesthesia: Local (Specify) (1% lido w/ epi) Pre-op Diagnosis: 25 cm scalp laceration Post-op Diagnosis: same Procedure: closure multilayer Findings: good tissue approximation with hemostasis Inf/Abcess present in the surg proc area at time of surgery?: No EBL: Minimal Specimen(s): none
--- NOTE | 2018-08-02 18:15 | GOP ---
[f rep st] OPERATIVE REPORT DATE OF OPERATION: SURGEON: Ced Pang MD TILLER WORKER: No assistant account manager. ANESTHESIA: Local anesthesia of 1% lidocaine with epinephrine. PREOPERATIVE DIAGNOSIS: Degloving scalp laceration over 20 cm and a smaller one of 3 cm. POSTOPERATIVE DIAGNOSIS: PROCEDURE PERFORMED: Irrigation and closure. FINDINGS: INDICATIONS: 67-year-old gentleman who presented with limited activated trauma, 20 cm scalp lacerati on with a large amount of blood loss at the scene. This is requested to be close from the emergency room. DESCRIPTION OF PROCEDURE: The patient is supine on the bed with a collar in place, and the wound was irrigated copiously with saline. After ensuring all debris was out, major clots were removed from t he hair and from the galea. The area was then reapproximated by using 2-0 Vicryl to reapproximate de ep dermis, and then using milagros for the superficial layer ensuring to keep the hair out of the clip s. This is done to the anterior hairline from just behind the ear and the 3 cm laceration was also c losed in a single layers using milagros. The area on his forehead was reapproximated using 4-0 nylon suture, interrupted, without difficulty. Bacitracin was applied, and the patient tolerated the proce dure well. COMPLICATIONS: There were no complications. /[id number]/MODL
[2018-08-02] MEDS: ROSUVASTATIN CALCIUM 10 MG TAB PO SCH (18:41)
[2018-08-03] MEDS: oxyCODONE IR 5 MG TAB PO PRN ×3 (00:41→19:47)
--- NOTE | 2018-08-03 02:21 | GCON ---
[f rep st] CONSULTATION PULMONARY/CRITICAL CARE CONSULTATION DATE OF CONSULTATION: 08/02/2018 REASON FOR CONSULTATION: Status post fall with neck fracture. HISTORY: The patient is a pleasant 67-year-old gentleman who fell down a flight of stairs at his lesie e yesterday. He does not remember how he fell. He remembers his trying to get him up. He stru ck his head and had a scalp wound. He also had a left wrist injury. CT scan of the neck on admissio n showed C6 and C7 fractures of the lamina and pedicles and subsequently a chip fracture of the left wrist. Blood alcohol was 139 on admission. The patient was given appropriate pain control, placed i n a hard collar, and admitted to the intensive care unit on step-down status. He has been seen by [facility] and surgery is being considered, either later today or possibly tomorrow. PAST MEDICAL HISTORY: Remarkable for systemic hypertension, hyperlipidemia, and chronic pain. There is a history of hyponatremia. MEDICATIONS: Home medications on admission included amlodipine, Crestor, metoprolol, Motrin, and hyd rochlorothiazide. PAST SURGICAL HISTORY: Hernia repairs, knee surgeries. SOCIAL HISTORY: The patient is . 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 He smoked cigarettes i n the distant past. He drinks alcohol generally daily, primarily beer. FAMILY HISTORY: Noncontributory. REVIEW OF SYSTEMS: A 10-point review of systems is negative except as noted above. ALLERGIES: No known drug allergies. PHYSICAL EXAMINATION: GENERAL: Reveals a gentleman who appears somewhat uncomfortable. He is sitti ng up in bed. There is a laceration, which has been sutured related to the left forehead and scalp. He has various bruises elsewhere. His left arm is in a splint. Nasal cannula oxygen is in place at 1 L. saturations are 100%. Blood pressure is 110/60, heart rate 85 with sinus rhythm on the monito r. Respiratory rate is 14. He is afebrile. HEENT: Remarkable for issues as outlined above regardi ng his trauma. A hard collar is in place. Nasal cannula oxygen is in place. CHEST: Clear bilatera lly. HEART: Regular in rate and rhythm without significant murmur or gallop. ABDOMEN: Soft, nonte nder. Bowel sounds are present. EXTREMITIES: The lower extremities are unremarkable for significan t edema, cords, or tenderness. He moves all extremities with good strength when asked except for the left upper extremity. Strength is limited secondary to pain from his wrist fracture. LABORATORY DATA: White blood cell count is 9200, hematocrit 38, and platelets are 562,000. PT and P TT on admission were normal. Sodium was 129, potassium 3.1, BUN 8 with a creatinine is 0.8. Glucose is 95. Blood alcohol on admission was 139. ASSESSMENT: 1. Status post fall. 2. Cervical spine fracture at C6-7: Surgery will be needed. Neurosurgery has seen the patient. He is being kept nothing by mouth for now. 3. Left wrist fracture: He has been seen by Orthopedics. An extended splint is going to be placed. 4. Abrasions, laceration: Status post suturing. 5. History of medical problems, including hypertension, hyperlipidemia, et cetera: Stable. His usu al medications can be continued. 6. Hyponatremia: This is a chronic problem, likely related to hydrochlorothiazide. This will not b e continued during the hospitalization and probably should be stopped going forward. 7. Anticoagulation: Sequential compression devices currently. Enoxaparin is contraindicated. 8. Gastrointestinal prophylaxis: Famotidine will be given until he is eating. PLANS AND RECOMMENDATIONS: Please see the problems and specific plans as noted above. Appropriate p ain control will be maintained. He will be kept n.p.o. for cervical spine surgery. Intravenous flui ds will be continued. Laboratory will be followed. There is no indication at this point in time for CIWA protocol, but he will be observed for signs and symptoms of alcohol withdrawal. Electrolytes w ill be followed. Potassium protocol will be ordered. Further plans and recommendations will be made based on his progress over the next 12-24 hours. /[id number]/MODL
[2018-08-03] MEDS: ACETAMINOPHEN 325 MG TAB PO PRN ×2 (06:01→12:23)
--- NOTE | 2018-08-03 07:38 | NEUSURGPN ---
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 Films reviewed with all the providers at [facility] and they recommended no surgery-strict collar use Plan: -pt with C spine fracture as well as stenosis noted on MRI of the C spine at C5/ 6. Films reviewed and recommendation for C collar with an [place] -pt will likely need an ACDF of C5/6 at some point. We would like him to heal these fractures first -ok to mobilize with therapy per Dr Bolaños -strict collar use -no bending or twisting of the neck -upright xrays in C collar show anatomic alignment -neuro intact -continue with collar at all times-will need Nicole collar for showers -recommend follow up in 4 weeks with xrays of the C spine -call with any questions or concerns -pt understands and agrees Subjective: Awake and alert. NAD. Eating/drinking and voiding. No f/c/n/v/d. No cp/sob/ abd or gu complaints. Objective: AAO x 3, PERRLA/EOMI GCS 15 no droop CN 2-12 grossly intact +lt touch 5/5 BUE/BLE = except unable to test left WE/WF due to splint in place. CMS distally intact to left hand Neuro Check Frequency: per routine Urinary Catheter in Place: No - Physician Discussed Patient with : [facility] Physical Exam - Vitals, I&O, Labs I and O 08/02/18 08/03/18 08/04/18 05:59 05:59 05:59 Intake Total 0 2516 Output Total 550 1275 Balance -550 1241 Weight 79.379 kg Intake: Oral (ml) 0 700 IV Intake (ml) 648 IV Infused (ml) 0 1168 NS W/ 20 KCl/L 1,000 ml @ 1168 100 mls/hr IV CONT SUSHMA Rx#:[id number] Output: Urine (ml) 550 1275 Urinal 550 1275 Other: Intake Quantity NPO Yes Sufficient Number of Voids Urinal 1 Number of Stools Urinal 0 Vital Signs Temp Pulse Resp BP Pulse Ox 37.0 C 81 18 114/71 97 08/03/18 07:27 08/03/18 07:27 08/03/18 07:27 08/03/18 07:27 08/03/18 07:27 Laboratory Results 08/03/18 04:44 ICD10 Worksheet Patient Problems: Problems Problem Status Onset Cervical spine fracture Acute Hand fracture Acute Scalp laceration Acute Arthritis of left knee Acute
[2018-08-03] MEDS ORDERED: MAGNESIUM SULF 1 GM/DEXTROSE 100 ML IV ONE (07:54)
[2018-08-03] MEDS: NS W/ 20 KCl/L 1,000 ML IV SCH (08:47)
--- NOTE | 2018-08-03 09:19 | TRAUMAPN ---
Trauma Progress Note - Problem/Surgery Performed (1) Fall at home Assessment/Plan: fell down stairs/LOC Qualifiers: Encounter type: initial encounter Qualified Code(s): W19.XXXA - Unspecified fall, initial encounter; Y92.009 - Unspecified place in unspecified non-institutional (private) residence as the place of occurrence of the external cause; Y92.009 - Unspecified place in unspecified non-institutional ( private) residence as the place of occurrence of the external cause (2) Hypertension Assessment/Plan: normally on metoprolol 50 mg BID, amlodipine 5mg Qday, HCTZ 25 mg Qday will restart metoprolol and monitor BP Qualifiers: Hypertension type: essential hypertension Qualified Code(s): I10 - Essential (primary) hypertension (3) Cervical spine fracture Assessment/Plan: cervical spine immobilization x 12 weeks in [place] collar Qualifiers: Cervical vertebra fracture level: C6 Fracture type: closed Fracture alignment: nondisplaced (4) Hand fracture Assessment/Plan: mangement with wrist splint per Dr. Reis/outpatient follow up Qualifiers: Encounter type: initial encounter (5) Scalp laceration Assessment/Plan: s/p repair Dr. Pang, uncomplicated healing milagros out 08/09 outpatient Qualifiers: Encounter type: initial encounter Qualified Code(s): S01.01XA - Laceration without foreign body of scalp, initial encounter (6) Hyponatremia Assessment/Plan: sodium 129 (7) Alcohol intoxication Assessment/Plan: no signs of EtOH withdrawal recommended abstinence while taking narcotic pain relievers Qualifiers: Complication of substance-induced condition: uncomplicated Qualified Code(s ): F10.920 - Alcohol use, unspecified with intoxication, uncomplicated Assessment/Plan: 67 y/o male s/p fall with CHI, scalp lac, C6 fx, left wrist fracture underlying HTN/presented with EtOH intox clinically stable with non-operative management cervical spine and wrist fracture Plan: PT/OT/ST discharge planning to home with outpatient Chato Nguyen Beasley Objective: Vital Signs Temp Pulse Resp BP Pulse Ox 37.0 C 81 18 114/71 97 08/03/18 07:27 08/03/18 07:27 08/03/18 07:27 08/03/18 07:27 08/03/18 07:27 Laboratory Results 08/03/18 04:44 08/02/18 08/03/18 08/04/18 05:59 05:59 05:59 Intake Total 0 2516 Output Total 550 1275 Balance -550 1241 PT 12.1 SEC (12.0-15.0) 08/02/18 02:15 INR 0.93 (0.83-1.16) 08/02/18 02:15 Physical Exam - Physical Exam General Appearance: alert, mild distress EENT: other (scalp lac with milagros in placed/abrasion and contusion left maxillary area) Respiratory: chest non-tender, lungs clear Cardiac/Chest: regular rate, rhythm, tachycardia Peripheral Pulses: 2+: dorsalis-pedis (R), dorsalis-pedis (L) Abdomen: normal bowel sounds, non-tender, soft Male Genitalia: deferred Rectal: deferred Back: Normal inspection Skin: warm/dry Extremities: other (left forearm/wrist splint, distal NV intact) Neuro/Psych: no motor/sensory deficits, alert, normal mood/affect, oriented x 3 , abnormal ap processor II-XII Time Spent w/Patient (minutes): 20
[2018-08-03] MEDS: METOPROLOL TARTRATE 50 MG TAB PO SCH ×2 (09:53→21:36)
--- NOTE | 2018-08-03 14:49 | HOSPPROG ---
Hospitalist Progress Note Assessment/Plan: 67 yo M w fall, c spine fracture, navicular fx and hyponatremia hyponatremia: chronic hctz therapy as well as possibly high beer intake permanent dc of hctz he wishes to decrease beer use c spine fracture: discussed w dr madrigal 12 weeks hard collar then consider surgery pain: well controlled proph: scd's' for now, rec lmwh if here for another 48 hours htn: continue metoprolol and follow Subjective: feels well. pain well controlled. Na stable at high 120's Objective: Vital Signs Temp Pulse Resp BP Pulse Ox 36.3 C 71 17 114/66 100 08/03/18 11:12 08/03/18 11:12 08/03/18 11:12 08/03/18 11:12 08/03/18 11:12 Laboratory Results 08/03/18 04:44 08/02/18 08/03/18 08/04/18 05:59 05:59 05:59 Intake Total 0 2516 344 Output Total 550 1275 Balance -550 1241 344 PT 12.1 SEC (12.0-15.0) 08/02/18 02:15 INR 0.93 (0.83-1.16) 08/02/18 02:15 - Physical Exam Constitutional: no apparent distress, appears nourished Eyes: PERRL, anicteric sclera Ears, Nose, Mouth, Throat: moist mucous membranes, hearing normal Cardiovascular: regular rate and rhythym, no murmur, rub, or gallop Respiratory: no respiratory distress, no rales or rhonchi Gastrointestinal: normoactive bowel sounds, soft, non-tender abdomen Genitourinary: no bladder fullness, No ronquillo in urethra Skin: warm, normal color Musculoskeletal: full muscle strength Neurologic: AAOx3 ICD10 Worksheet Patient Problems: Problems Problem Status Onset Alcohol intoxication Acute Cervical spine fracture Acute Fall at home Acute Hand fracture Acute Hypertension Acute Hyponatremia Acute Scalp laceration Acute Arthritis of left knee Acute
[2018-08-03] MEDS ORDERED: PNEUMOC 13-VAL CONJ-DIP CRM/PF 0.5 ML SYR (PREVNAR 13) IM ONE (16:07)
[2018-08-03] MEDS: ROSUVASTATIN CALCIUM 10 MG TAB PO SCH (17:04)
--- NOTE | 2018-08-04 06:47 | NEUSURGPN ---
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 Films reviewed with all the providers at [facility] and they recommended no surgery-strict collar use that pt is tolerating well now Plan: -pt with C spine fracture as well as stenosis noted on MRI of the C spine at C5/ 6. Films reviewed and recommendation for C collar with an [place] -neuro intact-no new UE/LE complaints of numbness/tingling/weakness or pain -pt will likely need an ACDF of C5/6 at some point. We would like him to heal these fractures first -ok to mobilize with therapy per Dr Bolaños -strict collar use-tolerating well-no skin issues -no bending or twisting of the neck -upright xrays in C collar show anatomic alignment -continue with collar at all times-will need Nicole collar for showers -recommend follow up in 4 weeks with xrays of the C spine -will check with Trauma Services to see if NS can s/o -call with any questions or concerns -pt understands and agrees Subjective: Awake and alert. NAD. Eating/drinking and voiding. No f/c/n/v/d. No bangura/neck/ chest/abd or gu complaints. Objective: AAO x 3, PERRLA/EOMI GCS 15 no droop CN 2-12 grossly intact +lt touch 5/5 BUE/BLE = except unable to test left WE/WF due to splint in place. CMS distally intact to left hand Neuro Check Frequency: per routine Urinary Catheter in Place: No - Physician Discussed Patient with : [facility] Physical Exam - Vitals, I&O, Labs I and O 08/03/18 08/04/18 08/05/18 05:59 05:59 05:59 Intake Total 2516 1294 Output Total 1275 725 Balance 1241 569 Intake: Oral (ml) 700 950 IV Intake (ml) 648 IV Infused (ml) 1168 344 NS W/ 20 KCl/L 1,000 ml @ 1168 244 100 mls/hr IV CONT SUSHMA Rx#:[id number] Protocol Magnesium 1 dose 100 (See Protocol) IV AD PRN Rx#:[id number] Output: Urine (ml) 1275 725 Urinal 1275 725 Other: Intake Quantity Yes Yes Sufficient Number of Voids Toilet 1 Urinal 1 1 Vital Signs Temp Pulse Resp BP Pulse Ox 36.8 C 70 16 129/78 H 100 08/04/18 04:00 08/04/18 04:00 08/04/18 04:00 08/04/18 04:00 08/04/18 04:00 Laboratory Results 08/04/18 04:55 ICD10 Worksheet Patient Problems: Problems Problem Status Onset Alcohol intoxication Acute Cervical spine fracture Acute Fall at home Acute Hand fracture Acute Hypertension Acute Hyponatremia Acute Scalp laceration Acute Arthritis of left knee Acute
[2018-08-04] MEDS ORDERED: METHOCARBAMOL 750 MG TAB PO PRN (07:04)
[2018-08-04 07:37] VITALS: BP 137/81
[2018-08-04] MEDS: METOPROLOL TARTRATE 50 MG TAB PO SCH (07:58)
--- NOTE | 2018-08-04 09:48 | ASMTCAGE ---
CAGE Do you feel you ought to Answers: Yes cut down on your drinking or drug use? Do people annoy you by Answers: No criticizing your drinking or drug use? Do you feel guilty about Answers: No your drinking or drug use? Do you drink or use drugs Answers: Yes first thing in the morning ([employer])? Additional Comments Pt declines resources Date Signed: 08/04/2018 09:47 AM Electronically Signed By:NEGIN Zamora
--- NOTE | 2018-08-04 10:46 | GDS ---
[f rep st] DISCHARGE SUMMARY CHIEF COMPLIANT: Fall with multiple injuries. CURRENT ILLNESS: A 67-year-old male who fell, brief loss of consciousness. Brought to the hospital, where he was found to have a C7 fracture, disk protrusion at C5, left navicular fracture, 25 cm scal p laceration, hyponatremia, elevated alcohol level. HOSPITAL COURSE: The patient underwent closure of his extensive scalp laceration in the emergency ro om by Dr. Pang, was seen in consultation for his left navicular fracture, which was splinted by Dr Ramya Reis, and in consultation with Neurosurgery regarding neck fracture and Dr. Bolaños for which an Asp en collar was recommended with re-evaluation in 4 weeks and probable eventual diskectomy for cervical stenosis at a later date. The patient had an uneventful hospital course. At the time of discharge, is anxious to be sent home and tolerating his discomfort with oral pain medications. FINAL DIAGNOSES: C7 fracture, left navicular fracture, central canal stenosis, scalp laceration. OPERATIONS: As above. DISPOSITION: Home. FOLLOWUP: Follow up with Dr. Bolaños in 4 weeks; Dr. Reis in 10-14 days; Dr. Pang in [address] aple removal from his scalp. /[id number]/MODL
--- NOTE | 2018-08-04 12:06 | HOSPPROG ---
Hospitalist Progress Note Assessment/Plan: 67 yo M w fall, c spine fracture, navicular fx and hyponatremia hyponatremia: chronic hctz therapy as well as possibly high beer intake permanent dc of hctz he wishes to decrease beer use c spine fracture: discussed w dr madrigal 12 weeks hard collar then consider surgery pain: well controlled proph: scd's' for now, rec lmwh if here for another 48 hours htn: continue metoprolol and amlodipine and follow Subjective: feels well. ready for dc Objective: Vital Signs Temp Pulse Resp BP Pulse Ox 36.5 C 78 16 137/81 H 97 08/04/18 07:35 08/04/18 07:58 08/04/18 07:35 08/04/18 07:58 08/04/18 07:35 Laboratory Results 08/04/18 04:55 08/03/18 08/04/18 08/05/18 05:59 05:59 05:59 Intake Total 2516 1294 Output Total 1275 725 Balance 1241 569 PT 12.1 SEC (12.0-15.0) 08/02/18 02:15 INR 0.93 (0.83-1.16) 08/02/18 02:15 - Physical Exam Constitutional: no apparent distress, appears nourished Eyes: PERRL, anicteric sclera Ears, Nose, Mouth, Throat: moist mucous membranes, hearing normal Cardiovascular: regular rate and rhythym, no murmur, rub, or gallop Respiratory: no respiratory distress, no rales or rhonchi Gastrointestinal: normoactive bowel sounds, soft, non-tender abdomen Genitourinary: no bladder fullness Skin: warm, normal color Musculoskeletal: full muscle strength Neurologic: AAOx3 Psychiatric: interacting appropriately ICD10 Worksheet Patient Problems: Problems Problem Status Onset Alcohol intoxication Acute Cervical spine fracture Acute Fall at home Acute Hand fracture Acute Hypertension Acute Hyponatremia Acute Scalp laceration Acute Arthritis of left knee Acute
--- NOTE | 2018-08-05 09:04 | ASMTLACE ---
LACE Length of stay for Answers: 3 days current admission Acuity / Level of Answers: Yes Care: Did the patient have an inpatient admission? Comorbidities - select Answers: Opioid dependence all that apply / Chronic pain Other Notes: HTN; HLD # of Emergency department Answers: 1-2 visits in the last 6 months Score: 12 Date Signed: 08/05/2018 09:03 AM Electronically Signed By:NEGIN Zamora
--- NOTE | 2018-08-05 09:07 | ASMTCMCOM ---
CM Note CM Note Notes: Pt d/c yesterday home independent, declining HHC and ETOH resources. Date Signed: 08/05/2018 09:06 AM Electronically Signed By:NEGIN Zamora
== END 2018-08-04 12:31 | disposition home or self-care (01) | DRG 552 ==
LOC: EDUNIT# → F2N 05:05 → F3N 19:27
PROVIDERS: ADMIT Surgery; ATTEND Surgery
PROC: 0HQ0XZZ Repair Scalp Skin, External Approach (ICD-10-PCS; principal; 2018-08-02)
DX: S12.601A Unspecified nondisplaced fracture of seventh cervical vertebra, initial encounter for closed fracture (principal); E87.1 Hypo-osmolality and hyponatremia; S12.501A Unspecified nondisplaced fracture of sixth cervical vertebra, initial encounter for closed fracture; S62.002A Unspecified fracture of navicular [scaphoid] bone of left wrist, initial encounter for closed fracture; S01.01XA Laceration without foreign body of scalp, initial encounter; M50.222 Other cervical disc displacement at C5-C6 level; W10.8XXA Fall (on) (from) other stairs and steps, initial encounter; Y92.018 Other place in single-family (private) house as the place of occurrence of the external cause; Z23 Encounter for immunization; Y90.6 Blood alcohol level of 120-199 mg/100 ml; R40.2412 Glasgow coma scale score 13-15, at arrival to emergency department; I10 Essential (primary) hypertension; E78.5 Hyperlipidemia, unspecified; G89.29 Other chronic pain; F10.10 Alcohol abuse, uncomplicated
CPT/HCPCS: 82435-PO; 82565-PO; 82947-PO; 84132-PO; 84295-PO; 84520-PO; 85014-ER; 92507-GN; 92523-GN; 97116-GP; 97161-GP; 97166-GO; 97530-GO; 97535-GO; A9585; G0009; G0390; G0480; J2270; J2405; J3475; L0174; L3984

== ENCOUNTER → 2018-08-12 | Outpatient (CLI) | payer OTHER | LOC: BMCIMAGING 09:44 | PROVIDERS: ATTEND Orthopaedic Surgery Hand Surgery | DX: S62.002D Unspecified fracture of navicular [scaphoid] bone of left wrist, subsequent encounter for fracture with routine healing (principal) ==

== ENCOUNTER → 2018-09-02 | Outpatient (CLI) | payer OTHER | LOC: FIMAGING 10:32 | PROVIDERS: ATTEND Physician Assistant Surgical | DX: S12.591D Other nondisplaced fracture of sixth cervical vertebra, subsequent encounter for fracture with routine healing (principal); W10.8XXD Fall (on) (from) other stairs and steps, subsequent encounter ==

== ENCOUNTER → 2018-09-14 | Outpatient (CLI) | payer OTHER | LOC: BMCIMAGING 08:43 | PROVIDERS: ATTEND Orthopaedic Surgery Hand Surgery | DX: S62.025D Nondisplaced fracture of middle third of navicular [scaphoid] bone of left wrist, subsequent encounter for fracture with routine healing (principal) ==

== ENCOUNTER → 2018-10-12 | Outpatient (CLI) | payer OTHER | LOC: BMCIMAGING 09:32 | PROVIDERS: ATTEND Orthopaedic Surgery Hand Surgery | DX: S62.025D Nondisplaced fracture of middle third of navicular [scaphoid] bone of left wrist, subsequent encounter for fracture with routine healing (principal) ==

== ENCOUNTER → 2018-10-26 | Outpatient (CLI) | payer OTHER | LOC: FIMAGING 08:45 ==

== ENCOUNTER → 2018-11-09 | Outpatient (CLI) | payer OTHER | LOC: BMCIMAGING 08:05 ==